=== PATIENT | male | born 1930 | race Caucasian/White ===

== ENCOUNTER → 2017-02-05 17:28 | Outpatient (CLI) | payer MEDICARE, BC ==
[2017-02-05 21:03] LABS: APPEARANCE CLEAR (CLEAR); BILIRUBIN NEGATIVE (NEGATIVE); COLOR YELLOW (YELLOW); GLUCOSE NEGATIVE (NEGATIVE); KETONE NEGATIVE (NEGATIVE); LEUKOCYTE ESTERASE NEGATIVE (NEGATIVE); NITRITE NEGATIVE (NEGATIVE); PROTEIN NEGATIVE (NEGATIVE); SPECIFIC GRAVITY 1.015 (1.005-1.020); UROBILINOGEN NORMAL (NORMAL)
== END | disposition home or self-care (01) ==
LOC: D.LABREF 17:28
PROVIDERS: Urology
DX: N39.0 Urinary tract infection, site not specified (principal)

== ENCOUNTER 2017-03-15 05:28 | Day surgery (SDC) | payer MEDICARE, BC ==
[~2017-03-15] VITALS: Ht 172.7 cm; Wt 81.6 kg
[~2017-03-15 05:28] MED LIST: ASPIRIN EC81 M1 PO; CENTRUM SILVER1 TA1 PO; CRESTOR5 MG PO; FLOMAX0.4 MG PO; HCTZ25 MG PO; LISINOPRIL10 MG PO; LOPRESSOR25 MG PO; MAGNESIUM OXID500 MG PO; NEXIUM40 MG PO; PLAVIX75 MG PO; PROSCAR5 MG PO; SYNTHROID25 MCG PO; VITAMIN B-121000 MCG PO
[2017-03-15 07:00] VITALS: BP 127/79; Ht 172.7 cm; Wt 81.6 kg
== END 2017-03-15 16:11 | disposition home or self-care (01) ==
LOC: D.OPS 05:28 → D.PAN 08:15 → D.OPS 16:11
DX: R97.20 Elevated prostate specific antigen [PSA] (principal); F17.200 Nicotine dependence, unspecified, uncomplicated; I25.10 Atherosclerotic heart disease of native coronary artery without angina pectoris; I10 Essential (primary) hypertension; K21.9 Gastro-esophageal reflux disease without esophagitis; Z95.1 Presence of aortocoronary bypass graft; Z01.812 Encounter for preprocedural laboratory examination

== ENCOUNTER 2017-03-17 10:32 | Inpatient (IN) | payer MEDICARE, BC ==
[2017-03-17] VITALS (12 sets, daily range): BP systolic 87–156; BP diastolic 59–92; BMI 27.0
[2017-03-17 11:15] LABS: BASOPHILS 0.2 % (0-2); EOSINOPHILS 2.2 % (0-7); HEMATOCRIT 30.2 % (42.0-54.0); HEMOGLOBIN 9.9 g/dL (13.5-17.5); IMMATURE GRANULOCYTES 0.3 % (0-5); LYMPHOCYTES 7.4 % (15-50); MCH 27.8 pg (26.0-34.0); MCHC 32.8 g/dL (31.0-37.0); MCV 84.8 fL (80.0-100.0); MEAN PLATELET VOLUME 10.4 fL (7.4-10.4); MONOCYTES 7.6 % (2-11); NEUTROPHILS 82.3 % (40-80); PLATELET COUNT 147 10x3/uL (130-400); RBC 3.56 10x6/uL (4.20-6.10); RDW 14.1 % (11.5-14.5); WBC 9.1 10x3/uL (4.8-10.8)
[2017-03-17 11:22] LABS: INR 1.14 (0.85-1.17); PROTIME 14.5 SECONDS (11.6-15.0)
[2017-03-17 11:23] LABS: APTT 34.3 SECONDS (22.8-39.4)
[2017-03-17 11:30] LABS: ALBUMIN 3.4 g/dL (3.4-5.0); BILIRUBIN - TOTAL 0.41 mg/dL (0.2-1.3); CALCIUM 8.9 mg/dL (8.5-10.1); CARBON DIOXIDE 22.4 mmol/L (21.0-32.0); CREATININE - SERUM 2.1 mg/dL (0.6-1.3); POTASSIUM - SERUM 4.4 mmol/L (3.5-5.1); PROTEIN - SERUM 7.3 g/dL (6.4-8.2)
[2017-03-17 11:56] LABS: APPEARANCE SLT CLOUDY (CLEAR); BILIRUBIN NEGATIVE (NEGATIVE); COLOR YELLOW (YELLOW); GLUCOSE NEGATIVE (NEGATIVE); KETONE NEGATIVE (NEGATIVE); NITRITE NEGATIVE (NEGATIVE); PROTEIN TRACE mg/dL (NEGATIVE); SPECIFIC GRAVITY 1.015 (1.005-1.020); UROBILINOGEN NORMAL (NORMAL)
[2017-03-17 11:58] LABS: BACTERIA FEW /hpf (NONE SEEN); EPITHELIAL CELLS 0-5 /hpf (0-5); WHITE CELLS - URINE 0-5 /hpf (0-5)
--- NOTE | 2017-03-17 17:00 | NUR ---
ENTERED ROOM TO ANSWER PT CALL LIGHT. KIMBERLEE RN, AT BEDSIDE. PT IN BATHROOM HAVING BM. ASSISTED PT WITH POLO CARE, BUT PT SUDDENLY FELT FAINT. APPROXIMATELY 400CC'S OF BRIGHT RED BLOOD IN [place] HAT. SAT PT IN A CHAIR AND PT BECAME DIAPHORETIC AND PALE. PT PASSED OUT IN CHAIR. X4 ASSIST FROM AND LIFTED PT BACK TO BED. RAPID RESPONE CALLED AT 1710. CURRENT BP 185/81. ICU NURSE, LAB, LEAD TECHNOLOGIST IN CYTOGENETICS, CHARGE NURSE, AND FAMILY AT BEDSIDE. DR. HERNANDEZ CALLED BY DAMI WIRE LOOP MACHINE OPERATOR. ORDERS OBTAINED. DR. CUELLAR CALLED BY DAMI WIRE LOOP MACHINE OPERATOR, WELL. AWAITING CALL BACK FROM HER. 15 MINUTES PASSED AND PTS BP WAS THEN 108/51. PULSE 67 SINUS RHYTHM ON TELEMETRY PER HARDWARE ENGINEER, JUDY. DR. CUELLAR RETURNED CALL. NEW ORDERS OBTAINED. PT TRANSFERED TO ICU VIA BED TO ROOM 2311.
--- NOTE | 2017-03-17 17:20 | NUR ---
RR CALLED FOR ACUTE BLOOD LOSS FROM RECTUM. APPROX 400 CC BRIGHT RED, CLOTTY BLOOD. UPON ARRIVAL PT. IS A&O. SATTING 99% ON 2L O2. RR 20 EVEN AND UNLABORED. NO DISTRESS. SPOKE WITH DR. HERNANDEZ. UPDATED. ORDERS REC'D FOR STAT H&H, CONSULT GI. SPOKE WITH DR. CUELLAR. ORDERS FROM DR. CUELLAR TO TRANSFUSE 2 UNITS PRBC, 2 UNITS FFP AND 1 UNIT PLATLETS. TRANSFER TO ICU. GET H&H AFTER TRANSFUSION IS COMPLETED.
[2017-03-17 17:39] LABS: HEMATOCRIT 28.8 % (42.0-54.0); HEMOGLOBIN 9.4 g/dL (13.5-17.5)
--- NOTE | 2017-03-17 17:48 | NUR ---
REC'D TO ROOM 2311 VIA BED. CONNECTED TO MONITOR AND VS OBTAINED. AAOX3.
--- NOTE | 2017-03-17 18:00 | NUR ---
FFP STARTED VIA L AC IV. SEE TRANSFUSION SHEET FOR VS.
--- NOTE | 2017-03-17 18:00 | NUR ---
IST UNIT PRBCS STARTED. SEE TRANSFUSION RECORD.
--- NOTE | 2017-03-17 18:20 | NUR ---
2ND IV STARTED IN L AC ON 2ND ATTEMPT.
--- NOTE | 2017-03-17 18:30 | NUR ---
2ND UNIT PRBCS HANGED. SEE TRANSFUSION RECORD.
--- NOTE | 2017-03-17 19:00 | NUR ---
TO [facility] FOR BLEEDING SCAN VIA BED.
--- NOTE | 2017-03-17 19:10 | NUR ---
TO [facility] FOR BLEEDING SCAN VIA BED, PRBC'S INFUSING, PORTABLE MONITOR ESTABLISHED.
--- NOTE | 2017-03-17 20:14 | NUR ---
BLEEDING SCAN COMPLETE, BACK TO PT ROOM, ICU MONITORS RE-ESTABLISHED, DR HERNANDEZ AND DR CUELLAR ON UNIT, UPDATE PROVIDED.
[2017-03-17 20:37] LABS: HEMATOCRIT 29.2 % (42.0-54.0); HEMOGLOBIN 9.8 g/dL (13.5-17.5)
--- NOTE | 2017-03-17 21:00 | NUR ---
DR MORALES CONTACTED PER DR CUELLAR, PT DISCUSSED, ORDERS RECEIVED FROM DR MORALES VIA TELEPHONE.
--- NOTE | 2017-03-17 21:30 | NUR ---
PT FAMILY IN FOR VISITATION, PT CONVERSING EASILY IN NO APPARENT DISTRESS. DR CUELLAR IN ROOM, FAMILY UPDATED AND QUESTIONS ANSWERED.
--- NOTE | 2017-03-17 21:50 | NUR ---
PT PLACED ON BEDPAN AND GIVEN URINAL UPON REQUEST. NO RESULTS YIELDED VIA BEDPAN, 200 CC OF CONCENTRATED URINE VOIDED PER URINAL.
[2017-03-18] VITALS (16 sets, daily range): BP systolic 115–150; BP diastolic 60–80
--- NOTE | 2017-03-18 01:30 | NUR ---
PT RESTING IN BED WITH EYES CLOSED, VSS, CONT POC.
--- NOTE | 2017-03-18 03:00 | NUR ---
REASSESSMENT PER FLOWSHEET, NO ACUTE CHANGES NOTED, WILL CONT TO MONITOR. VSS
[2017-03-18 03:45] LABS: BASOPHILS 0.3 % (0-2); EOSINOPHILS 1.5 % (0-7); IMMATURE GRANULOCYTES 0.3 % (0-5); LYMPHOCYTES 14.8 % (15-50); MCH 28.2 pg (26.0-34.0); MCHC 33.3 g/dL (31.0-37.0); MCV 84.6 fL (80.0-100.0); MEAN PLATELET VOLUME 10.6 fL (7.4-10.4); MONOCYTES 7.3 % (2-11); NEUTROPHILS 75.8 % (40-80); PLATELET COUNT 138 10x3/uL (130-400); RBC 3.19 10x6/uL (4.20-6.10); RDW 14.4 % (11.5-14.5)
[2017-03-18 04:00] LABS: ALBUMIN 3.2 g/dL (3.4-5.0); ANION GAP 11.7 mmol/L (8-16); BILIRUBIN - TOTAL 0.73 mg/dL (0.2-1.3); CALCIUM 8.6 mg/dL (8.5-10.1); CARBON DIOXIDE 24.9 mmol/L (21.0-32.0); POTASSIUM - SERUM 4.6 mmol/L (3.5-5.1); PROTEIN - SERUM 6.3 g/dL (6.4-8.2)
[2017-03-18 04:03] LABS: WBC 6.7 10x3/uL (4.8-10.8)
[2017-03-18 04:10] LABS: INR 1.16 (0.85-1.17); PROTIME 14.6 SECONDS (11.6-15.0)
--- NOTE | 2017-03-18 06:50 | NUR ---
DR MORALES CALLED FOR UPDATE ON PT, INFORMATION PROVIDED, NEW ORDERS RECEIVED.
[2017-03-18 09:15] LABS: HEMATOCRIT 29.1 % (42.0-54.0); HEMOGLOBIN 9.7 g/dL (13.5-17.5)
[2017-03-18 14:11] LABS: HEMATOCRIT 27.3 % (42.0-54.0); HEMOGLOBIN 8.9 g/dL (13.5-17.5)
[2017-03-18 20:30] LABS: HEMATOCRIT 27.2 % (42.0-54.0); HEMOGLOBIN 8.9 g/dL (13.5-17.5)
--- NOTE | 2017-03-18 22:30 | NUR ---
ALERT AND ORIENTED. PT C/O SHOULDER PAIN 12/02. GAVE TYLENOL PER TELEPHONE. ASSESSMENT COMPLETE PER FLOW-SHEET. WILL CONTINUE TO MONITOR.
[2017-03-19] VITALS: BP 117/64
[2017-03-19 02:36] LABS: HEMATOCRIT 27.6 % (42.0-54.0)
[2017-03-19 04:00] VITALS: BP 126/60
--- NOTE | 2017-03-19 07:12 | NUR ---
AWAKE AND ALERT WITH AT BEDSIDE. RESPIRATIONS EVEN AND NON LABORED. BED IN LOWEST POSITION WITH WHEEL LOCKED AND SRX2. CALL LIGHT IN REACH, WILL CONTINUE WITH PLAN OF CARE.
[2017-03-19] MEDS ORDERED: AVODART0.5 MG PO (08:12)
[2017-03-19 08:30] LABS: HEMATOCRIT 29.2 % (42.0-54.0); HEMOGLOBIN 9.5 g/dL (13.5-17.5)
[2017-03-19 08:43] VITALS: BP 157/83
--- NOTE | 2017-03-19 08:43 | NUR ---
SCHEDULED MEDICATIONS ADMINISTERED AT THIS TIME. DENIES FURTHER NEEDS. CALL LIGHT IN REACH, WILL CONTINUE WITH PLAN OF CARE.
--- NOTE | 2017-03-19 13:27 | NUR ---
SCHEDULED TYLENOL ADMINISTERED AT THIS TIME FOR SHOULDER PAIN PER ORDER.
[2017-03-19 14:32] LABS: HEMATOCRIT 28.8 % (42.0-54.0); HEMOGLOBIN 9.6 g/dL (13.5-17.5)
[2017-03-19 14:57] VITALS: BMI 28.3
[2017-03-19 16:13] VITALS: BP 157/77
--- NOTE | 2017-03-19 17:28 | NUR ---
SCHEDULED TYLENOL ADMINISTERED AT THIS TIME.
[2017-03-19] MEDS ORDERED: GABAPENTIN100 MG PO (17:46)
--- NOTE | 2017-03-20 20:04 | HP ---
PATIENT: YANICK HAMILTON MEDICAL RECORD: [id number] ACCOUNT: [id number] LOCATION:D.[facility]2231 : 30 ADMISSION DATE: 03/17/17 HISTORY AND PHYSICAL EXAMINATION DATE OF ADMISSION: 03/17/2017 CHIEF COMPLAINT: Bright red blood per rectum. HISTORY OF PRESENT ILLNESS: This is an 86-year-old white male who had passed a large amount of bright red blood about 8:30 this morning. He came in to the Emergency Department at that time. His hemoglobin was 9.9. At that time, his BUN was 24 and creatinine was 2.1. In the ED, he had another episode of large volume painless hemorrhage, and again late this afternoon he had a third episode reportedly approximately 400 cc. Rapid response was called and he was resuscitated and taken to the ICU. His systolic blood pressure was 80 and he was tachycardic. He was given 2 units of O negative blood and 1 unit of FFP, and 1 unit of single donor platelets. RBC scan was ordered. The patient has had elevated PSA. He had a prostate biopsy done by Dr. Ochoa on March 15. According to the patient and family, during the procedure, a hemorrhoidal artery was inadvertently nicked and repaired. He had a minimal amount of bleeding after that and did not have any bleeding yesterday at all. With his ongoing bleeding now, he is in the ICU. PAST MEDICAL HISTORY: He has aortic stenosis, coronary artery disease, reflux, hypertension, hyperlipidemia, hypothyroidism, TIA, elevated PSA. PAST SURGICAL HISTORY: He had a bioprosthetic [place]n aortic valve replacement in July 2016 in [place]. He had coronary artery bypass grafts in April 2007. He has had bilateral hip replacements. He has had a left knee replacement. In October of this year he had anterior cervical disc fusion at C4-C5 spinal for stenosis. HOME MEDICATIONS: Include pantoprazole 40 mg once a day, metoprolol 25 mg 1-1/2 pills twice a day, Plavix 75 mg once a day, hydrochlorothiazide 25 mg once a day, aspirin 81 mg once a day, multivitamin once a day, lisinopril 10 mg 1/2 twice a day, levothyroxine 25 mcg once a day, Flomax 0.4 mg once a day, magnesium oxide 250 mg once a day, vitamin B12 of 1000 mcg once a day, Crestor 5 mg once a day. ALLERGIES: HE HAS NOT GOTTEN ALONG WELL WITH STATINS IN THE PAST. HABITS: Never smoked. No alcohol or drugs. FAMILY HISTORY: Father had a stroke and heart disease. REVIEW OF SYSTEMS: GENERAL: No major weight changes. HEENT: No particular sinus or allergy problems. RESPIRATORY: No history of asthma or emphysema. CARDIAC: See above history with bypass surgery and aortic valve replacement. GASTROINTESTINAL: He has had reflux. GENITOURINARY: Enlarged prostate. No diagnosis of cancer. NEUROLOGIC: No seizures or migraine headaches. PSYCHIATRIC: Denies depression or melancholia. HISTORY AND PHYSICAL [id number] YANICK HAMILTON PHYSICAL EXAMINATION: VITAL SIGNS: Now, he is afebrile, heart rate 68, respirations 20 and blood pressure 108/59. He just got back from a bleeding scan. He is awake and alert, does not appear in acute distress. HEENT: Grossly within normal limits. NECK: Supple. No JVD or bruit. HEART: Regular rate and rhythm without murmur. LUNGS: Clear. ABDOMEN: Soft, nontender. EXTREMITIES: No edema. RECTAL: Not done by me. He has had jeremy bright red blood per rectum. LABORATORY RESULTS: Last hemoglobin was 9.8, hematocrit 29.2. Urine: yellow, slightly cloudy, trace protein, 2+ blood, trace leukocyte esterase, 10-25 red blood cells, few bacteria. White count was 9100 and platelet count 147,000. INR 1.14. Basic metabolic panel is all essentially normal except for sodium 133 and BUN 24, creatinine 2.1. Liver enzymes were all normal. The bleeding scan shows uptake identified in the level of the rectum, most in keeping with active GI bleed. Dr. Romero spoke with Dr. Arreola this evening. ASSESSMENT: 1. Acute lower gastrointestinal bleed. 2. History of coronary artery disease 3. History of bioprosthetic aortic valve replacement. PLAN: Dr. Romero has been consulted and has worked very hard this evening and is very appreciative, and it is very much appreciated. She spoke with Dr. Zavala about the case and he will see him in the morning. We will monitor his blood counts. Other tests and procedures as warranted. TRANSINT:[id number] Voice Confirmation ID: [id number] DOCUMENT ID: [id number] FARIBA HERNANDEZ MD at 2004 CC: [id number] DICTATION DATE: 03/17/172107 PUBLIC SAFETY TELECOMMUNICATOR: 03/17/172206 DIS IN 03/19/17 [place] [id number] [place] [id number]
--- NOTE | 2017-03-23 11:13 | CN ---
PATIENT NAME:YANICK HAMILTON MEDICAL RECORD: [id number] : 30 LOCATION:D.MS [facility]2231 ADMIT DATE: 03/17/17 ACCOUNT: [id number] CONSULTING PHYSICIAN: VAN MORALES MD REFERRING PHYSICIAN: BENITO ROBERT MD DATE OF CONSULTATION: 03/18/2017 Consultation Note Addendum CHIEF COMPLAINT: Bleeding. HISTORY OF PRESENT ILLNESS: I saw the patient after he has been given TXA as well as blood products. The patient had undergone transrectal prostate biopsies. Dr. Romero spoke to me about the patient personally by phone. I checked on the patient several times and my plan was to operate on the patient. Instead, he stopped bleeding on his own. I think that an operation might be fraught with difficulty. I think the anterior portion of his rectum is going to be very, very inflamed. It is likely going to be a submucosal hematoma. It is likely that if there is entry into the hematoma that he may have a significant rectal defect that could require a proximal diversion. So for right now, I elected for no operative treatment. We discussed the possible operative therapies including hemorrhoidal artery ligation versus a procedure for prolapsing hemorrhoids, which should ligate whole the descending, rectal and hemorrhoidal arteries. This is a consultation note addendum. For the typed portion of the consultation note, please see the chart. This would include the past medical and surgical history, allergies, social history, family history as well as current medications. REVIEW OF SYSTEMS: No nausea, no vomiting, no fever, no chills, no chest pain, no shortness of breath. The patient is on Plavix due to an aortic valve replacement. PHYSICAL EXAMINATION: GENERAL: The patient does not appear acutely ill. He does not appear chronically ill. VITAL SIGNS: Reviewed. EARS: External ears appear normal. EYES: Extraocular movements are intact. NECK: Trachea is midline. CHEST: No intercostal retractions. PULMONARY: Nonlabored, no stridor. ABDOMEN: Nontender. EXTREMITIES: No peripheral cyanosis. INTEGUMENT: No rash, no ulcerations. PSYCHIATRIC: Normal affect. NEUROLOGIC: Nonfocal, no lethargy. The patient answers questions appropriately, moves all extremities well. BACK: No thoracic kyphosis. LYMPHATICS: No lymphangitic streaking of the exposed extremities. IMPRESSION: Rectal bleeding after prostate biopsies with the patient on Plavix. The bleeding has now ceased. CONSULT REPORT [id number] YANICK HAMILTON PLAN: Continue to hold Plavix. TRANSINT:[id number] Voice Confirmation ID: [id number] DOCUMENT ID: [id number] VAN MORALES MD at 1113 CC: [id number] DICTATION DATE: 03/19/171752 ELIGIBILITY MANAGER: 03/19/171945 DIS IN 03/20/17 [place] [id number] [place] [id number]
--- NOTE | 2017-03-23 11:13 | PN ---
PATIENT:YANICK HAMILTON MEDICAL RECORD: [id number] LOCATION:D.[facility] ADMISSION DATE: 03/17/17 PROGRESS NOTE DATE OF SERVICE: 03/19/2017 This is a progress note addendum. CHIEF COMPLAINT: No bleeding. The patient has had no further bleeding. He is tolerating a regular diet. I think the best thing to do in his case would be to continue to hold his Plavix for perhaps a total of 5 days. Then, he can restart his Plavix. I have planned for no operative therapy for him at this time. Symptoms are improved. The patient is comfortable. He is not having any pain. This is a progress note addendum. For the typed portion of the progress note, please see the chart. This would include the past medical and surgical history, allergies, social history, family history as well as current medications. REVIEW OF SYSTEMS: No nausea, no vomiting, no fever, no chills, no chest pain, no shortness of breath. PHYSICAL EXAMINATION: GENERAL: The patient does not appear acutely ill. He does not appear chronically ill. VITAL SIGNS: Reviewed. EARS: External ears appear normal. EYES: Extraocular movements are intact. NECK: Trachea is midline. CHEST: No intercostal retractions. PULMONARY: Nonlabored, no stridor. ABDOMEN: No peritonitis. EXTREMITIES: No peripheral cyanosis. INTEGUMENT: No rash, no ulcerations. PSYCHIATRIC: Normal affect. NEUROLOGIC: Nonfocal, no lethargy. The patient answers questions appropriately, moves all extremities well. BACK: No thoracic kyphosis. LYMPHATIC: No lymphangitic streaking of the exposed extremities. IMPRESSION: Rectal bleeding, which is now ceased. PLAN: Continue to hold Plavix. TRANSINT:[id number] Voice Confirmation ID: [id number] DOCUMENT ID: [id number] PROGRESS NOTE [id number] YANICK HAMILTON VAN MORALES MD at 1113 CC: [id number] DICTATION DATE: 03/19/171754 ROUGE SIFTER AND MILLER: 03/19/17 0643 DIS IN 03/20/17 [place] [id number] [place] [address]
== END 2017-03-20 19:56 | disposition home or self-care (01) | DRG 920 ==
LOC: D.OPS 10:32 → D.MS 13:00 → D.OPS 17:32 → D.MS 17:33 → D.ICU 18:39 → D.MS 03-18 18:19
PROVIDERS: Emergency Medicine; Family Medicine; Internal Medicine Gastroenterology; ADMIT Family Medicine
DX: K91.840 Postprocedural hemorrhage of a digestive system organ or structure following a digestive system procedure (principal); D62 Acute posthemorrhagic anemia; R00.0 Tachycardia, unspecified; I35.0 Nonrheumatic aortic (valve) stenosis; I25.10 Atherosclerotic heart disease of native coronary artery without angina pectoris; K21.9 Gastro-esophageal reflux disease without esophagitis; I10 Essential (primary) hypertension; E78.5 Hyperlipidemia, unspecified; E03.9 Hypothyroidism, unspecified; I95.9 Hypotension, unspecified; Y83.8 Other surgical procedures as the cause of abnormal reaction of the patient, or of later complication, without mention of misadventure at the time of the procedure; Y82.8 Other medical devices associated with adverse incidents